=== PATIENT | female | born 1940 | race Caucasian/White ===

== ENCOUNTER 2018-08-28 03:04 | Emergency (ER) | payer MEDICARE ==
--- NOTE | 2018-08-28 03:58 | EDM.PDOC ---
ED HPI GENERAL MEDICAL PROBLEM - General Chief Complaint: General Stated Complaint: TOOTHACHE Time Seen by Provider: 08/28/18 03:53 Source of Information: Reports: Patient, Family History Limitations: Reports: No Limitations - History of Present Illness INITIAL COMMENTS - FREE TEXT/NARRATIVE: pt had her teeth cleaned on wed. On she had some tenderness in the left facial area. Last nite the pain was very severe and tonight she was not able to sleep. It only hurts when she is lying down, Onset: Other ( started . ) Duration: Hour(s): Location: Reports: Face Associated Symptoms: Reports: No Other Symptoms Left Face/Facial Pain Score (Numeric/FACES): 8 - Related Data Allergies Allergy/AdvReac Type Severity Reaction Status Date / Time No Known Allergies Allergy Verified 08/28/18 03:20 Home Meds: Home Meds Aspirin [Adult Low Dose Aspirin EC] 81 mg PO DAILY 06/10/18 [History] Ezetimibe 10 mg PO DAILY 06/10/18 [History] Latanoprost 0.005 drop TOP BEDTIME 06/10/18 [History] Lisinopril 10 mg PO DAILY 06/10/18 [History] Metoprolol Succinate [Toprol XL 50mg] 50 mg PO DAILY 06/10/18 [History] Multivitamin [Multi-Vitamin Daily] 1 tab PO DAILY 06/10/18 [History] Simvastatin [Zocor] 40 mg PO BEDTIME 06/10/18 [History] metFORMIN HCl [Metformin HCl ER] 500 mg PO DAILY 06/10/18 [History] L.acidoph,Paracasei, B.lactis [Probiotic] 1 each PO DAILY 08/28/18 [History] Past Medical History HEENT History: Reports: Impaired Vision Cardiovascular History: Reports: Heart Murmur, High Cholesterol, Hypertension Gastrointestinal History: Reports: Chronic Constipation, Chronic Diarrhea, Irritable Bowel Syndrome, Other (See Below) Other Gastrointestinal History: small intestinal bacterial overgrowth 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: Musculoskeletal History: Reports: Arthritis Endocrine/Metabolic History: Reports: Diabetes, Type II - Infectious Disease History Infectious Disease History: Reports: Chicken Pox, Measles, Mumps - Past Surgical History HEENT Surgical History: Reports: Adenoidectomy, Tonsillectomy GI Surgical History: Reports: Cholecystectomy, Colonoscopy, EGD Musculoskeletal Surgical History: Reports: Knee Replacement Oncologic Surgical History: Reports: Biopsy of Breast, Other (See Below) Other Oncologic Surgeries/Procedures: bilateral Social & Family History - Tobacco Use Smoking Status *Q: Never Smoker - Caffeine Use Caffeine Use: Reports: Coffee - Recreational Drug Use Recreational Drug Use: No ED ROS GENERAL - Review of Systems Review Of Systems: See Below Constitutional: Reports: No Symptoms HEENT: Reports: Other (pain over the rt maxillary area. Her teeth do not seem to be painful) Respiratory: Reports: No Symptoms Cardiovascular: Reports: No Symptoms Endocrine: Reports: No Symptoms ED EXAM, GENERAL - Physical Exam Exam: See Below Free Text/Narrative:: pt is having pain over the left maxillary sinus. She had her teeth cleaned on wed. The pain started after that. Exam Limited By: No Limitations General Appearance: Alert, Moderate Distress Ears: Normal TMs Nose: Normal Inspection Throat/Mouth: Normal Inspection Head: Atraumatic, Other (pt has marked tenderness over the left maxillary sinus. Her teeth are not tender. She is not tender in front of the ear. ) Neck: Normal Inspection Respiratory/Chest: No Respiratory Distress Course - Vital Signs Last Recorded V/S: Last Vital Signs Temp 36.7 C 08/28/18 03:29 Pulse 93 08/28/18 03:29 Resp 18 08/28/18 03:29 BP 153/87 H 08/28/18 03:29 Pulse Ox 98 08/28/18 03:29 - Orders/Labs/Meds Orders: Active Orders 24 hr Category Date Time Status Sinus Less 3V [CR] Stat Exams 08/28/18 03:51 Taken Meds: Medications Discontinued Medications Generic Name Dose Route Start Last Admin Trade Name Rebeca PRN Reason Stop Dose Admin Ceftriaxone Sodium 1 gm/ 0 gm 08/28/18 04:50 Lidocaine HCl 2.1 ml IM 08/28/18 04:51 ONETIME ONE Oxycodone/Acetaminophen 1 tab 08/28/18 04:54 Percocet 325-5 Mg PO 08/28/18 04:55 ONETIME ONE - Re-Assessments/Exams Free Text/Narrative Re-Assessment/Exam: 08/28/18 04:55 pt had a izquierdo view which did not reveal a full blown sinus infection She is truly tender over the area. She may havesome nerve irritation from the cleaning. 08/28/18 04:56 pt was given rocephen 1 gm. Departure - Departure Time of Disposition: 04:57 Disposition: Home, Self-Care 01 Condition: Fair Clinical Impression: Left maxillary sinusitis - Discharge Information Referrals: Robby Fragoso MD [Primary Care Provider] - Forms: ED Department Discharge Care Plan Goals: augmentin 875 bid for 1 week, use yogurt and probiotic while on the antibiotic. norco 5/325 q6h prn for pain. #8 - My Orders Last 24 Hours: My Active Orders 08/28/18 03:51 Sinus Less 3V [CR] Stat - Assessment/Plan Last 24 Hours: My Active Orders 08/28/18 03:51 Sinus Less 3V [CR] Stat
[2018-08-28] MEDS ORDERED: cefTRIAXone 1 GM, Lidocaine 1% 2.1 ML IM ONE ×2 (04:50)
[2018-08-28] MEDS ORDERED: Acetaminophen/oxyCODONE 325-5 MG Tab PO ONE (04:54)
--- NOTE | 2018-08-28 05:37 | CRLCR ---
Indication: Left maxillary sinus pain Technique: Two views Comparison: None Findings/Impression: Two views of the sinuses show no definite air-fluid levels or significant mucosal thickening. Prominent calcifications seen at the falx as well as hyperostosis frontalis interna. Orbits unremarkable. No acute sinusitis seen. Dictated by Juanjo Vines MD @ Aug 28 2018 5:33AM Signed by Dr. Juanjo Vines @ Aug 28 2018 5:34AM
== END 2018-08-28 05:49 | disposition home or self-care (01) ==
LOC: JP.ED 03:04
DX: J32.0 Chronic maxillary sinusitis (principal); E11.9 Type 2 diabetes mellitus without complications; I10 Essential (primary) hypertension; E78.00 Pure hypercholesterolemia, unspecified; Z79.84 Long term (current) use of oral hypoglycemic drugs; Z79.899 Other long term (current) drug therapy; Z79.82 Long term (current) use of aspirin
CPT/HCPCS: 70210; 99283; A9270; J0696; J2001

== ENCOUNTER 2019-11-02 07:34 | Day surgery (SDC) | payer MEDICARE, BC ==
[2019-11-02] MEDS ORDERED: Sodium Chloride 0.9% 1,000 ML IV SCH (08:00)
[2019-11-02] MEDS ORDERED: Propofol 200 MG/20 ML SDV ONE (09:06)
[2019-11-02] MEDS ORDERED: fentaNYL 100 MCG/2 ML SDV ONE (09:06)
--- NOTE | 2019-11-02 11:15 | OR ---
DATE OF PROCEDURE: 11/02/2019 SURGEON: Randolph Mclean MD PROCEDURE: Colonoscopy. FINDINGS: Diverticulosis, mild, mostly limited to sigmoid colon. COMPLICATIONS: None. SUPERVISING EDITOR TRAILER: None. ANESTHESIA: MAC. PREOPERATIVE DIAGNOSIS: Screening colonoscopy. POSTOPERATIVE DIAGNOSIS: Screening colonoscopy. RISKS: Risks, benefits, alternatives, and limitations including, but not limited to infection, bleeding, and perforation were explained to the patient, who wished to proceed. PROCEDURE IN DETAIL: The patient was placed in a left lateral decubitus position. Digital rectal exam was performed without abnormality. Scope was introduced and advanced atraumatically to the ileocecal valve. Scope was brought back through the ascending, transverse, descending colon, and retroflexed. No evidence of old or new blood. No masses. No polyps. No abnormalities on retroflexion. Diverticulosis was described as mild, limited to sigmoid colon without evidence of diverticulitis or bleeding. The patient tolerated the procedure well. Randolph Mclaen MD /[id number]
== END 2019-11-02 11:15 | disposition home or self-care (01) ==
LOC: JP.SDS 07:34
PROVIDERS: ATTEND Surgery
DX: Z12.11 Encounter for screening for malignant neoplasm of colon (principal); K57.30 Diverticulosis of large intestine without perforation or abscess without bleeding; E78.5 Hyperlipidemia, unspecified; I10 Essential (primary) hypertension; E11.9 Type 2 diabetes mellitus without complications; E66.9 Obesity, unspecified; Z68.30 Body mass index [BMI] 30.0-30.9, adult
CPT/HCPCS: G0121; J2704; J3010; J7030